=== PATIENT | female | born 1950 | race Caucasian/White ===

== ENCOUNTER 2017-02-17 21:38 | Emergency (ER) | payer MEDICARE, MEDICAID ==
--- NOTE | 2017-02-17 21:41 | ED Physician Chart ---
Chief Complaint/HPI - Patient Information Date Seen:: 02/17/17 Time Seen:: 21:41 Chief Complaint:: arm pain History of Present Illness:: 66-year-old female with acute, constant, moderate to severe, aching, 6-7 out of 10, nonradiating, intermittent right arm pain that started about 2 hours ago. Has associated red rash on the inside of her arm. Denies trauma, injury, burn, numbness, tingling, burning, chest pain, palpitations, nausea, vomiting, fevers. Historian:: Patient Review:: Nurse's Note Reviewed Review of Systems - Review of Systems Other: Complete system review otherwise unremarkable except as noted in history of present illness. Past Medical History - Past Medical History Past Medical History: No significant medical hx Family History: None Social History: Non Smoker, No Alcohol, No Drug Use, Other Surgical History: None Psychiatricy History: None Medication: None Family Medical History - Family Member Sister Ethnicity: Hx Family Cancer: No Hx Family Coronary Artery Disease: No Hx Family Congestive Heart Failure: No Hx Family Diabetes: Yes Physical Exam - Physical Examination Other:: INITIAL VITAL SIGNS: Reviewed by me GENERAL: Alert and interactive. No acute distress HEAD: Head is normocephalic and atraumatic EYES: EOMI. PERRL. No scleral icterus. No conjunctival injection ENT: Moist mucous membranes. NECK: Supple. No masses. Full range of motion RESPIRATORY: No tachypnea. Clear breath sounds bilaterally. No wheezing, rales, or rhonchi CV: Regular rate and rhythm. No murmurs, rubs, or gallops ABDOMEN: Soft, non-distended, non-tender. No guarding. No rebound. No masses. EXTREMITIES: No deformity. No cyanosis. No edema. Good neurovascular status to bilateral hands SKIN: Warm and dry. There is a red rash on the inside of the right arm from the elbow to forearm and slightly on the inside of the bicep area. Nontender. NEUROLOGIC: Alert and oriented. Face is symmetric. Speech is normal. Moves all extremities equally. Motor and sensory distally intact. Labs/Radiology/EKG Results - Radiology Results Results: Ultrasound venous Doppler right upper extremity Negative for DVT ED Septic Shock - . Is Septic Shock (SBP<90, OR Lactate>4 mmol\L) present?: No Reassessment (Disposition) - Reassessment Reassessment:: The patient has a rash on the right inner arm. It appears as though this may be early shingles. We did give intramuscular Toradol and Decadron here in the ER also oral Benadryl. Her pain did improve. We gave a prescription for a sick with severe presenting this is early shingles. Her primary care physician is Dr. Vera. She will see him on Sunday. Otherwise return to ER precautions were given. Patient says she understands and agrees the plan. Reassessment Condition:: Improved - Diagnosis Diagnosis:: Acute shingles right upper extremity, initial visit - Aftercare/Follow up Instructions Aftercare/Follow-Up Instructions:: Counseled pt regarding lab results/diagnosis & need follow up, Refer to Discharge Instructions Medication Prescribed:: Acyclovir - Patient Disposition Discharge/Transfer:: Home Time:: 23:20 Condition at Disposition:: Improved ED Discharge Plan - Patient Disposition Admit/Discharge/Transfer: PT DISCHARGED HOME Condition at Disposition: Improved Instructions: Shingles, [id number] Additional Instructions: PLEASE FILL YOUR PRESCRIPTION AND TAKE IS DIRECTED. FOLLOW UP WITH YOUR REGULAR DOCTOR IN 1-2 DAYS IF NOT FEELING ANY BETTER.
[2017-02-17] MEDS ORDERED: Dexamethasone Sodium Phos 4 mg/mL Vial IM STA (22:10)
[2017-02-17 22:14] LABS: % BASOPHILS 0.3 % (0.0-2.0); % EOSINOPHILS 3.7 % (0.0-5.0); % LYMPHOCYTES 38.7 % (20.0-50.0); % MONOCYTES 8.6 % (2.0-10.0); % NEUTROPHILS 48.7 % (40.0-80.0); HEMATOCRIT 40.6 % (35.0-45.0); HEMOGLOBIN 13.5 gm/dL (11.7-16.1); MEAN CELL VOLUME 91.1 fl (81-100); MEAN CORPUSCULAR HEMOGLOBIN 30.4 pg (27.0-31.0); MEAN CORPUSCULAR HGB CONC 33.3 pg (28.0-36.0); MEAN PLATELET VOLUME 8.3 fl; NEUTROPHILE ABSOLUTE 3.1 Th/cmm (1.8-8.0); PLATELET COUNT 175 Th/cmm (150-400); RED BLOOD COUNT 4.45 Mil/cmm (3.80-5.20); RED CELL DISTRIBUTION WIDTH 13.2 % (11.5-20.0); WHITE BLOOD COUNT 6.4 Th/cmm (4.8-10.8)
[2017-02-17] MEDS ORDERED: Dexamethasone Sodium Phos 10 mg/mL PF Vial ONE (22:17)
[2017-02-17 22:32] LABS: ALB/GLOB RATIO 1.5 (1.0-1.8); ALKALINE PHOSPHATASE 63 U/L (34-104); ANION GAP 7.3 (7.0-16.0); BILIRUBIN,TOTAL 0.4 mg/dL (0.3-1.0); BUN - UREA NITROGEN 9 mg/dL (7-25); BUN/CREATININE RATIO 12.9; CALCIUM SERUM 9.9 mg/dL (8.6-10.3); CARBON DIOXIDE 29.2 mEq/L (21.0-31.0); CHLORIDE 102 mEq/L (98-107); CREATININE - SERUM 0.7 mg/dL (0.6-1.2); GLUCOSE 101 mg/dL (70-105); POTASSIUM SERUM 3.5 mEq/L (3.5-5.1); SGOT 20 U/L (13-39); SGPT/ALT 14 U/L (7-52); SODIUM SERUM 135 mEq/L (136-145)
--- NOTE | 2017-02-18 11:19 | Diagnostic Imaging Report ---
Right upper extremity DVT study HISTORY: Pain, rule out DVT COMPARISON: None Technique: Longitudinal and transverse sonographic images of the right upper extremity veins were obtained with doppler analysis. FINDINGS: There is patency of the right jugular, subclavian, axillary, brachial, basilic, cephalic veins. Compressibility and augmentation was demonstrated with no evidence of DVT formation. IMPRESSION: No evidence of DVT within the right upper extremity venous system.
== END 2017-02-17 23:25 | disposition home or self-care (01) ==
LOC: ER 21:38
DX: B02.9 Zoster without complications (principal)
CPT/HCPCS: 99285; 96372 ×2; 93971; 36415; 85379; 85025; 80053; J1885